=== PATIENT | female | born 1950 | race Caucasian/White ===

== ENCOUNTER 2017-03-04 18:55 | Inpatient (IN) | payer OTHER ==
[~2017-03-04] VITALS: Ht 167.6 cm; Wt 152.2 kg
--- NOTE | ~2017-03-04 | 2DMMODE ---
[facility] [address] [place] [address] 2 D/M-MODE ECHOCARDIOGRAM Name: BEHZAD SPICER Room #: 242-P ADM IN M.R.#: [id number] Admission: 03/04/17 Attend Phys: Adrian Bone Discharge: Date of : 50 Date of Service: 03/05/17 1416 Report #: [id number] THIS REPORT FOR: //name// APPROVED REPORT Study performed: 03/05/2017 12:06:02 EXAM: Comprehensive 2D, Doppler, and color-flow Echocardiogram Patient Location: Bedside Room #: 242 Status: routine BSA: 2.51 HR: 91 bpm BP: 100/62 mmHg Rhythm: Atrial Fibrillation Other Information Study Quality: Adequate/ICU echo patient with trach Technically limited study due to morbid obesity, no mobility. Indications Atrial Fibrillation Hx: CHF, DM 2D Dimensions LVEF(%): 61.75 (>50%) IVSd: 12.07 (7-11mm) LVOT Diam: 22.09 (18-24mm) LVDd: 45.66 mm PWd: 12.53 (7-11mm) LVDs: 30.55 (25-40mm) Aortic Root: 33.54 mm Medina's LVEF: 61.75 % Volumes Left Atrial Volume (Systole) Single Plane 4CH: 65.12 mL Single Plane 2CH: 98.25 mL LA ESV Index: 35.00 mL/m2 Aortic Valve AoV Peak Richard.: 1.54 m/s AO Peak Gr.: 9.53 mmHg LVOT Max P.73 mmHg LVOT Max V: 0.95 m/s CHAY Vmax: 2.37 cm2 [facility] [place] [place] [address] 2 D/M-MODE ECHOCARDIOGRAM Name: BEHZAD SPICER Room #: [facility] ADM IN [facility].#: [id number] Admission: 03/04/17 Attend Phys: Adrian Bone Discharge: Date of : 50 Date of Service: 03/05/17 1416 Report #: [id number] Mitral Valve MV Decel. Time: 210.83 ms MV E Max Richard.: 1.14 m/s Pulmonary Valve PV Peak Richard.: 1.24 m/s PV Peak Gr.: 6.41 mmHg Tricuspid Valve RAP Estimate: 10.00 mmHg Left Ventricle The left ventricle is normal size. There is normal LV segmental wall motion. Mild concentric left ventricular hypertrophy. Left ventricular systolic function is normal. LVEF is 50-55%. This study is not technically sufficient to allow evaluation of the LV diastolic function due to atrial fibrillation. Right Ventricle Right ventricle is not well visualized. Atria Left atrium is dilated. Right atrium is at the upper limits of normal. Aortic Valve Aortic valve is mildly calcified. Trace aortic regurgitation. There is no aortic valvular stenosis. Mitral Valve The mitral valve is normal in structure. Mild mitral annular calcification. Trace mitral regurgitation. Tricuspid Valve Tricuspid valve is not well visualized. Pulmonic Valve Pulmonic valve is not well visualized. Great Vessels The aortic root is normal in size. The ascending aorta is normal in size. IVC is normal in size and collapses <50% with inspiration. Pericardium There is no pericardial effusion. [facility] [place] [address] 2 D/M-MODE ECHOCARDIOGRAM Name: BEHZAD SPICER Room #: 242-P ADM IN M.R.#: [id number] Admission: 03/04/17 Attend Phys: Adrian Bone Discharge: Date of : 50 Date of Service: 03/05/17 141 Report #: [id number] <Conclusion> The left ventricle is normal size. LVEF is 50-55%. Left atrium is dilated. Right atrium is at the upper limits of normal. Aortic valve is mildly calcified. Trace aortic regurgitation. There is no aortic valvular stenosis. The mitral valve is normal in structure. Mild mitral annular calcification. Trace mitral regurgitation. Pulmonic valve is not well visualized. <ELECTRONICALLY SIGNED> By: Freddy Tomlinson MD 03/05/17 1416 141 1416 Freddy Tomlinson MD /MARLIN
--- NOTE | ~2017-03-04 | EEG ---
[facility] [place] [address] [place] [address] ELECTROENCEPHALOGRAM Name: BEHZAD SPICER Room #: 451-P [facility] IN M.R.#: [id number] Admission: 03/04/17 Attend Phys: Will Bhakta MD Discharge: 03/13/17 Date of : 50 Report #: [id number] THIS REPORT FOR: //name// CC: Chidi Bhakta DATE OF SERVICE: 03/08/2017 The patient is being evaluated for seizures. The background activity appeared to be about 9 Hz and 30 microvolt. This is a symmetrical activity. In the left temporoparietal area, there is a constant activity, which correlates with the head tremor, which is also constant. This is pretty unusual. Photic stimulation is unremarkable. IMPRESSION: This patient's EEG demonstrates an abnormality in the left temporoparietal area. That is probably an artifact, but I cannot exclude the possibility of seizures fully in this patient. I will recommend a Neurology consult and considering a prolonged monitoring of this region to evaluate the patient further. <ELECTRONICALLY SIGNED> By: Jamie Perry MD 03/13/17 1941 [id number] 184 Jamie Perry MD /nt
--- NOTE | ~2017-03-04 | HC ---
[facility] [place] [address] [address] CONSULTATION Name: BEHZAD SPICER Room #: 242-P ADM IN M.R.#: [id number] Admission: 03/04/17 Attend Phys: Will Bhakta MD Discharge: Date of : 50 Report #: [id number] THIS REPORT FOR: //name// CC: Chidi Bhakta TYPE OF REPORT: Infectious disease consultation. REASON FOR CONSULTATION: I was asked to evaluate concerning shock. HISTORY OF PRESENT ILLNESS: The patient is a 66-year old with respiratory failure, chronic tracheostomy, who was in [facility]. She was transferred due to acute renal failure. Evaluation during the ER admission noted, blood pressure dropped into the 50s. She received IV fluids and started on vasopressors. She remains on the ventilator and has been essentially unresponsive. I had no significant history other than that going from the emergency room dictation and discussion with the nursing staff. She does have a history of respiratory failure, diabetes, congestive heart failure, aphagia and dysphagia. PAST MEDICAL HISTORY: Otherwise notable for atrial fibrillation. ALLERGIES: She is allergic to METFORMIN, SIMVASTATIN and TOBRAMYCIN. MEDICATIONS: As noted on her SEP, now including vancomycin and Zosyn. She is on Levophed drip. Blood pressure has improved while on this. FAMILY HISTORY: Unavailable. SOCIAL HISTORY: Not available. REVIEW OF SYSTEMS: She has peripheral IVs in place. She has an indwelling Means catheter. No reported decubiti. No diarrhea. No vomiting episodes. She has a PEG tube in place and tracheostomy. PHYSICAL EXAMINATION: VITAL SIGNS: Maximum temperature is 101 degrees; heart rate 130; blood pressure 72/57 with a MAP of 63, on Levaquin fluid drip at 14 mcg and on FiO2 of 45%. She would grimace to pain otherwise nonresponsive. HEENT: Pupils were reactive to light. NECK: Supple. Tracheostomy is unremarkable. She was obese. No rashes or decubiti. LUNGS: Coarse bilaterally. HEART: Regular and tachycardic. ABDOMEN: Soft. She had a mass in the lower abdomen below the umbilicus [facility] [address] [place] [address] CONSULTATION Name: BEHZAD SPICER Room #: 242-P ADM IN .R.#: [id number] Admission: 03/04/17 Attend Phys: Will Bhakta MD Discharge: Date of : 50 Report #: [id number] involving her abdominal pannus. This did not appear significantly tender. No other masses or hepatosplenomegaly identified. Indwelling Means catheter. EXTREMITIES: Unremarkable. LABORATORY STUDIES: Sodium 126, potassium 3.2, bicarbonate of 33 and creatinine is initially 3.1 and now 2.5. Liver function test normal. Albumin of 2 and lactate 2.2, down from 4 on admission. Hemoglobin 10 up from 7.6 on admission; WBC 9.7; platelet count 98,000 and 12% bands. Urinalysis, many wbc's and moderate bacteria. ABG on 45% FiO2 showed a pO2 97, pCO2 of 42 and pH 7.5. Blood and urine cultures are pending. RADIOLOGICAL DATA: Chest x-ray: Cardiomegaly, perihilar infiltrates and basilar infiltrates. IMPRESSION AND PLAN: A 66-year old with chronic respiratory failure, encephalopathy and acute renal failure, now with shock. Source is yet to be determined. She does have pulmonary infiltrates, although her oxygen requirements have not increased. She has an abdominal mass, suspect a hernia, this will need to be further evaluated. We will obtain further records from [facility]. Continue broad antibiotic support pending further studies. <ELECTRONICALLY SIGNED> By: Nakul Foy MD 03/06/17 1257 0814 [id number] Nakul Foy MD /nt
--- NOTE | ~2017-03-04 | HC ---
[facility] [place] [address] [place] [address] CONSULTATION Name: BEHZAD SPICER Room #: 451-P ADM IN M.R.#: [id number] Admission: 03/04/17 Attend Phys: Will Bhakta MD Discharge: Date of : 50 Report #: [id number] THIS REPORT FOR: //name// CC: Chidi Bhakta REFERRAL PHYSICIAN: Will Bhakta MD. REASON FOR REFERRAL: Respiratory failure. HISTORY OF PRESENT ILLNESS: The patient is a 66-year-old white female who is transferred from [facility] for abnormal labs. She has been admitted for possible sepsis. A pulmonary consultation was requested. The patient is not able to provide history. Most of her information is obtained from the records. According to the records, she has been at the [facility] for about 4 months. She is felt to be ventilator dependent, not responsive. She has had history of MRSA sepsis, pneumonia in the past. She was in her usual state of health when laboratory data was obtained. There was felt to have creatinine. For that reason, she was transferred to the ER. Currently, she is only responsive to sternal rub, she does not open her eyes. PAST MEDICAL HISTORY: Notable for chronic respiratory failure, ventilator dependent, status post tracheostomy, PEG tube placement, history of sleep apnea, cor pulmonale, morbid obesity, atrial fibrillation, diabetes mellitus type 2, coronary artery disease with prior stent placement. PAST SURGICAL HISTORY: As mentioned above including hysterectomy, herniorrhaphy. ALLERGIES: METFORMIN, SIMVASTATIN, TOBRAMYCIN, reactions unspecified. MEDICATIONS: Reviewed in the MAR. FAMILY HISTORY: Unobtainable. SOCIAL HISTORY: Unknown. She apparently has a son who has expressed a desire for full code blue. [facility] [address] [place] [address] CONSULTATION Name: BEHZAD SPICER Room #: 451-P [facility] IN ..#: [id number] Admission: 03/04/17 Attend Phys: Will Bhakta MD Discharge: Date of : 50 Report #: [id number] REVIEW OF SYSTEMS: Unable to obtain at this time. PHYSICAL EXAMINATION: GENERAL: She is only responsive to sternal rub. VITAL SIGNS: Temperature is 101 degrees Fahrenheit, pulse is 132, respiratory rate is 20, blood pressure was as low as systolic of 56 mmHg. Currently, is 100/60 mmHg systolic. Saturation 100%. HEENT: Normocephalic, atraumatic. NECK: Status post tracheostomy. CHEST: Fair breath sounds. No obvious rales or wheezes. CARDIOVASCULAR: Heart sounds are distant. No obvious murmurs or gallop. BREASTS: Deferred. ABDOMEN: Soft, mildly obese. No masses felt. GENITOURINARY: Deferred. RECTAL: Deferred. EXTREMITIES: There is trace edema, less than 1+ bilaterally. No cyanosis or clubbing. NEUROLOGIC: She is responsive only to deep sternal rub. Baseline is unclear. LABORATORY DATA: Chest x-ray showed mild left lower lobe infiltrates. Sodium 123, potassium 3.6, chloride of 78, CO2 is 37, BUN is 120, creatinine 3.1, glucose 282. Liver function profile grossly unremarkable. WBC 9500 with 12% bands, platelets 98,000. Albumin 1.9. Arterial blood gas revealed pH 7.53, pCO2 42, pO2 97, FIO2 45%. IMPRESSION: 1. Hypotension in this 66-year-old white female with severe comorbid conditions. Chest x-ray shows mild left-sided infiltrates. She has bandemia. She is febrile. UA shows moderate bacteria. The patient is presumed to have severe sepsis with septic shock, source possibly related to pneumonia, possible urinary tract infection. 2. Acute on chronic respiratory failure. The patient is felt to be ventilator dependent due to multiple comorbid conditions along with encephalopathy. 3. Acute kidney injury/presumed chronic kidney disease, hyponatremia, hypokalemia. 4. Acid base. The patient appears to in alkalosis presumably due to metabolic due to volume contraction. 5. Severe protein calorie malnutrition with an albumin of 1.9. 6. Anemia, chronic, given hypotension, recommend transfusion to keep hemoglobin greater than 7. 7. History of obstructive sleep apnea, cor pulmonale, presumed pulmonary hypertension, morbid obesity. This may have been the result for her chronic respiratory failure. RECOMMENDATION: We will continue mechanical ventilation, her acid base should [address] [address] CONSULTATION Name: BEHZAD SPICER Room #: 451-P [facility] IN M.R.#: [id number] Admission: 03/04/17 Attend Phys: Will Bhakta MD Discharge: Date of : 50 Report #: [id number] stabilize once her fluid status has improved. Wean O2 for saturation 90%. We will defer antibiotics to Infectious Disease. DVT and GI prophylaxis will be addressed. Overall, look appears to be poor. According to records, the son desires a full code blue. Thank you for this consultation. <ELECTRONICALLY SIGNED> By: Michael Hill MD 03/12/17 1706 1258 1347 Michael Hill MD /nt
--- NOTE | ~2017-03-04 | H ---
[facility] [place] [address] [place] [address] HISTORY AND PHYSICAL Name: BEHZAD SPICER Room #: 242-P ADM IN M.R.#: [id number] Admission: 03/04/17 Attend Phys: Will Bhakta MD Discharge: Date of : 50 Report #: [id number] THIS REPORT FOR: //name// CC: Chidi Bhakta DATE OF SERVICE: 03/05/2017 CHIEF COMPLAINT: Abnormal labs. HISTORY OF PRESENT ILLNESS: The patient is a 66-year-old female transferred from [facility] for evaluation of abnormal labs. She is unable to give any history and there is limited data available. I reviewed all electronic records. It appears she had some abnormal labs yesterday with creatinine elevated around 3. This was increased beyond her baseline. There was concern for infection or sepsis, and she was transferred to the hospital and subsequently admitted to ICU. She has been assessed by the renal and ID teams and ongoing treatment for sepsis is continuing. PAST MEDICAL HISTORY: Morbid obesity; respiratory failure, now ventilator dependent with trach and PEG; obesity hypoventilation syndrome, atrial fibrillation, there is a note suggesting chronic kidney disease, diabetes type 2. PAST SURGICAL HISTORY: Unknown. FAMILY HISTORY: Unknown. SOCIAL HISTORY: Unavailable. ALLERGIES: METFORMIN, SIMVASTATIN, AND TOBRAMYCIN. MEDICATIONS: DuoNeb, Eliquis, metoprolol, diltiazem, losartan, Depakote, Xanax, zinc, Lasix, acidophilus, Prilosec, Amaryl, Levoxyl, thiamine. REVIEW OF SYSTEMS: She is unable to give review. PHYSICAL EXAMINATION: VITAL SIGNS: Per nursing notes. GENERAL: She is asleep on the ventilator, looks chronically ill. HEAD AND NECK: She has got a thick obese neck. Tracheostomy tube in place. LUNGS: Clear anteriorly. HEART: Tachycardic, regular. ABDOMEN: Obese, soft, normoactive bowel sounds. PEG tube. [facility] [address] [place] [address] HISTORY AND PHYSICAL Name: BEHZAD SPICER Room #: [facility] IN M.R.#: [id number] Admission: 03/04/17 Attend Phys: Will Bhakta MD Discharge: Date of : 50 Report #: [id number] EXTREMITIES: No cyanosis or clubbing, 1+ edema. NEUROLOGIC: Cannot get her to follow any type of neuro exam. LABORATORY DATA: White count 9, hemoglobin 10, platelets 103. Sodium 126, potassium 3.2, BUN 105, creatinine 2.5, glucose 329, albumin 2. Urinalysis with red cells, white cells, bacteria and glucose, leukocyte esterase. ABG with pH 7.5, pCO2 of 42, PaO2 of 97. Renal ultrasound was fairly unremarkable. They were unable to visualize one of the kidneys due to her obesity. Chest x-ray shows cardiomegaly. ASSESSMENT: 1. Sepsis. 2. Acute renal failure on chronic kidney disease. 3. Chronic hypoxic respiratory failure. 4. Morbid obesity. 5. Obesity hypoventilation syndrome. 6. Diabetes type 2. 7. Anemia of chronic disease. 8. Severe protein-calorie malnutrition. PLAN: As mentioned, she is full sepsis treatment with IV antibiotics. I will ask the pulmonary service to follow her as well. She remains critically ill. Lovenox for DVT prophylaxis. <ELECTRONICALLY SIGNED> By: Eric Rock MD 03/06/17 1238 0949 1012 Eric Rock MD /nt
--- NOTE | ~2017-03-04 | HC ---
[facility] [place] [address] [place] [address] CONSULTATION Name: BEHZAD SPICER Room #: 451-P ADM IN M.R.#: [id number] Admission: 03/04/17 Attend Phys: Will Bhakta MD Discharge: Date of : 50 Report #: [id number] THIS REPORT FOR: //name// CC: Chidi Bhakta DATE OF SERVICE: 03/05/2017. ATTENDING PHYSICIAN: Dr. Bhakta. REASON FOR CONSULTATION: Elevated creatinine. HISTORY OF PRESENT ILLNESS: This is a 66-year-old patient transferred from [facility] care [facility] with hypotension, tachycardia and elevated creatinine. Little history is available. There are some records from long term. She apparently had been there for the last 4 months. She has a chronic ventilator patient with poor responsivity and fed with a PEG tube. Underlying substrate includes obesity, hypoventilation, cor pulmonale, previous methicillin-resistant Staphylococcus aureus sepsis, pneumonia, severe right-sided failure, chronic atrial fibrillation. She also has underlying diabetes. Apparently, she became even less responsive, developed worsening tachycardia and hypotension and a creatinine elevated. She was transferred to [facility] for further care. PAST MEDICAL HISTORY: Again, she has atrial fibrillation, diabetes, morbid obesity, history of sleep apnea, chronic vent now with tracheostomy, chronic PEG tube feeding, history of the right-sided failure with cor pulmonale. She has also had previous hysterectomy, hernia repair, cholecystectomy and possibly coronary artery disease with stenting. FAMILY HISTORY: Unable to be obtain. SOCIAL HISTORY: She is in the alf, has a son who insists on full code. REVIEW OF SYSTEMS: Cannot be taken. MEDICATIONS: As listed from the [facility] care facility included omeprazole 40 mg b.i.d., levothyroxine 75 mcg daily, glimepiride 4 mg daily, losartan 50 mg daily, zinc, vitamin B1, Eliquis 5 mg b.i.d., furosemide 40 mg b.i.d., metoprolol 50 mg b.i.d., diltiazem 90 mg every 6 hours, valproic acid 500 mg every 6 hours, insulin. PHYSICAL EXAMINATION: [facility] [address] [place] [address] CONSULTATION Name: BEHZAD SPICER Room #: 451-P [facility] IN .R.#: [id number] Admission: 03/04/17 Attend Phys: Will Bhakta MD Discharge: Date of : 50 Report #: [id number] GENERAL: This is a morbidly obese woman, unresponsive in the ICU on the ventilator, tracheostomy. SKIN: Cool. SKELETAL: Quite obese, well-developed, well nourished. HEENT: Extraocular movements cannot be tested. Pupils are a bit dilated, but react, extraocular movements. No scleral icterus. Hearing and vision unresponsive. Tracheostomy in place. CHEST: Shows diminished breath sounds with occasional rhonchi. HEART: Irregular and tachycardic. ABDOMEN: Soft, rather obese. EXTREMITIES: Show trace to 1+ generalized edema. NEUROLOGIC: Again, currently unresponsive. LABORATORY DATA: Includes hemoglobin of 7.6, white cell count is 9.5, 12% bands are noted, platelets are 98,000, sodium is 126, potassium 3.2, chloride 81, bicarbonate 33, BUN 105, creatinine 2.5, albumin 2, transaminases are not elevated. Lactic acid was 4 down to 2.2. Arterial blood gas last evening showed pH 7.53, pCO2 42, pO2 97, FiO2 of 45% on the ventilator. Urine sodium was low. Urinalysis indicated proteinuria and also apparent leukocyturia and bacteriuria indicating possible urinary tract infection. ASSESSMENT AND PLAN: 1. Elevated creatinine, creatinine is apparently elevated from baseline, baseline is not currently available, will need to check. She is tachycardic with an irregular heartbeat which I believe chronic and hypotensive. She has received over 3 L of IV fluid, apparently is being treated for apparent sepsis with broad-spectrum antibiotics as this appears to be appropriate, lactic acid was mildly elevated, but is better. Current support appears adequate, urine output is good creatinine is fallen from 3.1-2.5, continue to support with pressors, fluids and antibiotics as appropriate at this point. 2. Probable chronic kidney disease with known proteinuria. 3. Chronic respiratory failure with chronic ventilator and tracheostomy. 4. Chronic debility on tube feedings. 5. History of obesity, hypoventilation with cor pulmonale and right-sided heart failure. 6. History of diabetes mellitus with history of peripheral neuropathy. <ELECTRONICALLY SIGNED> By: Rodriguez Petty MD 03/12/17 1153 0731 0815 Rodriguez Petty MD /nt
[2017-03-04 18:55] VITALS: BP 91/46
[2017-03-04 20:23] LABS: HEMATOCRIT 21.7 % (37.0-47.0); HEMOGLOBIN 7.6 gm/dL (12.0-15.0); MCH 34.1 pg (26.0-34.0); MCHC 34.9 g/dL (28.0-37.0); MCV 97.9 fL (80.0-100.0); PLATELET COUNT 98 thou/uL (150-400); RBC 2.22 mil/uL (4.20-5.00); RDW 15.1 % (10.5-14.5); WBC 9.5 thou/uL (4.0-11.0)
[2017-03-04 20:27] LABS: MANUAL DIFF YES
[2017-03-04 20:29] LABS: CALCIUM 9.2 mg/dL (8.5-10.1); CREATININE 3.1 mg/dL (0.6-1.0); POTASSIUM 3.6 mmol/L (3.5-5.1)
[2017-03-04 20:36] LABS: ALBUMIN 1.9 g/dL (3.4-5.0); TOTAL BILIRUBIN 0.4 mg/dL (<0.1-1.0); TOTAL PROTEIN 7.2 g/dL (6.4-8.2)
[2017-03-04 20:45] LABS: ABG SAMPLE TYPE ARTERIAL; BE(vivo) 11.1 mmol/L (-2 to +3); HCO3 34.8 mmol/L (22.0-26.0); O2Hb 97.1 % (92.0-98.0); PCO2 42.4 mmHg (35.0-45.0); PO2 97.1 mmHg (80.0-100.0); pH 7.532 (7.360-7.450); tCO2 36.1 mmol/L (24.0-30.0)
[2017-03-04 20:46] LABS: ABG COMMENT A/C MODE; LACTATE 4.96 mmol/L (0.5-2.0); STICK SITE L.RADIAL; TIDAL VOLUME 500 ml
[2017-03-04 20:50] LABS: INR 1.1; PROTIME 11.3 Seconds (9.3-11.4)
[2017-03-04 20:56] LABS: ABSOLUTE NEUTROPHILS 8.6 thou/uL (1.4-8.2); ANISOCYTOSIS SLIGHT; MACROCYTES SLIGHT; METAMYELOCYTES 1 %; TOTAL CELL COUNT 100
[2017-03-04 22:05] LABS: URINE BILIRUBIN NEGATIVE (Negative); URINE BLOOD 3+ (Negative); URINE GLUCOSE-RANDOM* 1+ (Negative); URINE KETONES NEGATIVE (Negative); URINE LEUKOCYTES-REFLEX 3+ (Negative); URINE PROTEIN (DIPSTICK) 3+ (Negative); URINE UROBILINOGEN 0.2 E.U./dl (0.2-1.0)
[2017-03-04 22:06] LABS: URINE COLOR RED
[2017-03-04 22:07] LABS: SQUAMOUS 0-3 Few /LPF (0-3); URINE RBC >20 Many /HPF (0-2); URINE WBC-REFLEX >25 Many /HPF (0-5)
[2017-03-04 22:08] LABS: CASTS None Seen /LPF (None Seen); CRYSTALS None Seen /LPF (None Seen)
[2017-03-04 22:45] VITALS: BP 116/61
[2017-03-04 23:00] VITALS: BP 99/76
[2017-03-04 23:15] VITALS: BP 81/27
[2017-03-04 23:24] VITALS: BP 100/60
[2017-03-04 23:45] VITALS: BP 97/58
[2017-03-05] VITALS (97 sets, daily range): BP systolic 51–119; BP diastolic 15–78
[2017-03-05 04:50] LABS: URINE CREATININE-RANDOM* < 13.0 mg/dL
[2017-03-05] MEDS ORDERED: OMEPRAZOLE40 MG PER TUBE (05:31)
[2017-03-05] MEDS ORDERED: GLIMEPIRIDE4 MG PER TUBE (05:32)
[2017-03-05] MEDS ORDERED: LEVOTHYROXIN0.075 MG PER TUBE (05:32)
[2017-03-05] MEDS ORDERED: COZAAR 50 MG TA50 M2 PER TUBE (05:33)
[2017-03-05] MEDS ORDERED: ORAZINC220 MG PER TUBE (05:34)
[2017-03-05] MEDS ORDERED: VITAMIN B-1100 MG PER TUBE (05:34)
[2017-03-05] MEDS ORDERED: PROBIOTIC1 EAC1 PER TUBE (05:35)
[2017-03-05] MEDS ORDERED: ELIQUIS5 MG PER TUBE (05:35)
[2017-03-05] MEDS ORDERED: LOPRESSOR50 PER TUBE (05:36)
[2017-03-05] MEDS ORDERED: XANAX 0.5 MG0.5 MG PER TUBE (05:36)
[2017-03-05] MEDS ORDERED: LASIX 40 MG TAB40 M2 PER TUBE (05:36)
[2017-03-05] MEDS ORDERED: DILTIAZEM HCL90 MG PER TUBE (05:37)
[2017-03-05] MEDS ORDERED: VALPROIC A500 MG/10 PER TUBE (05:38)
[2017-03-05] MEDS ORDERED: CALMOSEPTINE O3.5 GM TP (05:38)
[2017-03-05] MEDS ORDERED: DUONEB 2.5-0.5 M3 ML INH (05:39)
[2017-03-05 06:19] LABS: CALCIUM 9.2 mg/dL (8.5-10.1); CREATININE 2.5 mg/dL (0.6-1.0); PHOSPHORUS 4.4 mg/dL (2.5-4.9); POTASSIUM 3.2 mmol/L (3.5-5.1)
[2017-03-05 07:30] LABS: HEMATOCRIT 30.3 % (37.0-47.0); MCH 33.2 pg (26.0-34.0); MCHC 33.9 g/dL (28.0-37.0); MCV 97.9 fL (80.0-100.0); RBC 3.09 mil/uL (4.20-5.00); RDW 15.7 % (10.5-14.5); WBC 9.7 thou/uL (4.0-11.0)
[2017-03-05 07:32] LABS: HEMOGLOBIN 10.3 gm/dL (12.0-15.0); MANUAL DIFF YES
[2017-03-05 08:25] LABS: ABSOLUTE NEUTROPHILS 8.3 thou/uL (1.4-8.2); ANISOCYTOSIS 1+; POLYCHROMASIA OCCASIONAL; TOTAL CELL COUNT 100
[2017-03-05 08:44] LABS: PLATELET COUNT 103 thou/uL (150-400); PLATELET ESTIMATE NORMAL
[2017-03-05 18:22] LABS: ALBUMIN 1.7 g/dL (3.4-5.0); CREATININE 2.5 mg/dL (0.6-1.0); PHOSPHORUS 3.3 mg/dL (2.5-4.9); POTASSIUM 3.2 mmol/L (3.5-5.1)
[2017-03-06] VITALS (88 sets, daily range): BP systolic 63–112; BP diastolic 44–76
[2017-03-06 05:15] LABS: HEMATOCRIT 25.3 % (37.0-47.0); HEMOGLOBIN 8.6 gm/dL (12.0-15.0); MCH 33.3 pg (26.0-34.0); MCHC 34.1 g/dL (28.0-37.0); MCV 97.6 fL (80.0-100.0); PLATELET COUNT 85 thou/uL (150-400); RBC 2.59 mil/uL (4.20-5.00); RDW 15.5 % (10.5-14.5); WBC 7.9 thou/uL (4.0-11.0)
[2017-03-06 05:17] LABS: MANUAL DIFF YES
[2017-03-06 05:23] LABS: ALBUMIN 1.5 g/dL (3.4-5.0); CALCIUM 8.9 mg/dL (8.5-10.1); PHOSPHORUS 2.6 mg/dL (2.5-4.9)
[2017-03-06 05:32] LABS: POTASSIUM 2.5 mmol/L (3.5-5.1)
[2017-03-06 05:44] LABS: ABG SAMPLE TYPE ARTERIAL; BE(vivo) 3.8 mmol/L (-2 to +3); LACTATE 1.57 mmol/L (0.5-2.0); O2(CT) 16.7 mL/dL (15.0-23.0); O2Hb 98.6 % (92.0-98.0); PCO2 35.9 mmHg (35.0-45.0); PO2 155.8 mmHg (80.0-100.0); pH 7.494 (7.360-7.450); sO2 99.2 % (92.0-98.0); tCO2 28.1 mmol/L (24.0-30.0)
[2017-03-06 05:45] LABS: STICK SITE L.RADIAL; TIDAL VOLUME 500 ml
[2017-03-06 08:23] LABS: ABSOLUTE NEUTROPHILS 6.7 thou/uL (1.4-8.2); TOTAL CELL COUNT 100
[2017-03-06 08:24] LABS: ANISOCYTOSIS 1+
[2017-03-06 18:09] LABS: ALBUMIN 1.6 g/dL (3.4-5.0); CALCIUM 9.3 mg/dL (8.5-10.1); CREATININE 1.7 mg/dL (0.6-1.0); PHOSPHORUS 2.2 mg/dL (2.5-4.9)
[2017-03-06 18:11] LABS: POTASSIUM 2.8 mmol/L (3.5-5.1)
[2017-03-07] VITALS (91 sets, daily range): BP systolic 67–121; BP diastolic 37–84
[2017-03-07 05:18] LABS: HEMOGLOBIN 8.8 gm/dL (12.0-15.0); MCH 33.2 pg (26.0-34.0); MCHC 33.9 g/dL (28.0-37.0); MCV 98.2 fL (80.0-100.0); PLATELET COUNT 92 thou/uL (150-400); RBC 2.65 mil/uL (4.20-5.00); RDW 15.6 % (10.5-14.5); WBC 6.7 thou/uL (4.0-11.0)
[2017-03-07 05:27] LABS: ALBUMIN 1.6 g/dL (3.4-5.0); CALCIUM 9.3 mg/dL (8.5-10.1); CREATININE 1.5 mg/dL (0.6-1.0); PHOSPHORUS 2.1 mg/dL (2.5-4.9); POTASSIUM 3.3 mmol/L (3.5-5.1)
[2017-03-07 05:28] LABS: MANUAL DIFF YES
[2017-03-07 07:56] LABS: ABSOLUTE NEUTROPHILS 5.2 thou/uL (1.4-8.2); TOTAL CELL COUNT 100
[2017-03-07 07:58] LABS: ANISOCYTOSIS 1+
[2017-03-07 13:37] LABS: MAGNESIUM 1.8 mg/dL (1.8-2.4); POTASSIUM 3.7 mmol/L (3.5-5.1)
[2017-03-08] VITALS (24 sets, daily range): BP systolic 83–119; BP diastolic 29–75
[2017-03-08 05:23] LABS: HEMATOCRIT 23.8 % (37.0-47.0); MCH 33.4 pg (26.0-34.0); MCHC 33.9 g/dL (28.0-37.0); MCV 98.5 fL (80.0-100.0); PLATELET COUNT 103 thou/uL (150-400); RBC 2.41 mil/uL (4.20-5.00); RDW 15.6 % (10.5-14.5)
[2017-03-08 05:24] LABS: MANUAL DIFF YES
[2017-03-08 05:31] LABS: ABG SAMPLE TYPE ARTERIAL; BE(vivo) 5.1 mmol/L (-2 to +3); HCO3 29.2 mmol/L (22.0-26.0); LACTATE 1.37 mmol/L (0.5-2.0); O2(CT) 15.5 mL/dL (15.0-23.0); O2Hb 98.4 % (92.0-98.0); PO2 174.6 mmHg (80.0-100.0); STICK SITE LRA; TIDAL VOLUME 500 ml; sO2 99.3 % (92.0-98.0); tCO2 30.4 mmol/L (24.0-30.0)
[2017-03-08 05:32] LABS: ALBUMIN 1.7 g/dL (3.4-5.0); CALCIUM 9.5 mg/dL (8.5-10.1); CREATININE 1.3 mg/dL (0.6-1.0); MAGNESIUM 1.8 mg/dL (1.8-2.4); PHOSPHORUS 2.1 mg/dL (2.5-4.9); POTASSIUM 3.4 mmol/L (3.5-5.1); TOTAL BILIRUBIN 0.4 mg/dL (<0.1-1.0)
[2017-03-08 05:32] LABS: ABG COMMENT AC20 500 +8 40%
[2017-03-08 07:13] LABS: ABSOLUTE NEUTROPHILS 4.3 thou/uL (1.4-8.2); METAMYELOCYTES 1 %; TOTAL CELL COUNT 100
[2017-03-08 07:20] LABS: ANISOCYTOSIS 1+
[2017-03-09] VITALS (17 sets, daily range): BP systolic 76–132; BP diastolic 37–83
[2017-03-09 06:16] LABS: ALBUMIN 1.8 g/dL (3.4-5.0); CALCIUM 9.9 mg/dL (8.5-10.1); CREATININE 1.1 mg/dL (0.6-1.0); PHOSPHORUS 1.9 mg/dL (2.5-4.9); POTASSIUM 3.7 mmol/L (3.5-5.1)
[2017-03-10 03:29] VITALS: BP 101/58
[2017-03-10 05:10] LABS: CALCIUM 9.5 mg/dL (8.5-10.1); CREATININE 1.3 mg/dL (0.6-1.0); MAGNESIUM 1.7 mg/dL (1.8-2.4); PHOSPHORUS 3.1 mg/dL (2.5-4.9)
[2017-03-10 05:45] LABS: ABG SAMPLE TYPE ARTERIAL; BE(vivo) 7.9 mmol/L (-2 to +3); HCO3 32.7 mmol/L (22.0-26.0); LACTATE 2.37 mmol/L (0.5-2.0); O2(CT) 13.8 mL/dL (15.0-23.0); O2Hb 97.2 % (92.0-98.0); PCO2 47.2 mmHg (35.0-45.0); PO2 107.3 mmHg (80.0-100.0); STICK SITE L.RADIAL; pH 7.458 (7.360-7.450); sO2 98.1 % (92.0-98.0); tCO2 34.1 mmol/L (24.0-30.0)
[2017-03-10 05:46] LABS: O2(CAP) 30 mL/dL; TIDAL VOLUME 0.501 ml
[2017-03-10 08:08] VITALS: BP 114/40
[2017-03-10 11:34] VITALS: BP 119/51
[2017-03-10 15:42] VITALS: BP 120/44
[2017-03-10 19:48] VITALS: BP 97/47
[2017-03-10 23:51] VITALS: BP 97/48
[2017-03-11 05:40] LABS: CALCIUM 9.3 mg/dL (8.5-10.1); CREATININE 1.2 mg/dL (0.6-1.0); PHOSPHORUS 2.9 mg/dL (2.5-4.9)
[2017-03-11 07:35] LABS: ABG SAMPLE TYPE ARTERIAL; BE(vivo) 11.6 mmol/L (-2 to +3); HCO3 36.3 mmol/L (22.0-26.0); LACTATE 1.72 mmol/L (0.5-2.0); O2(CT) 11.6 mL/dL (15.0-23.0); O2Hb 96.4 % (92.0-98.0); PCO2 49.3 mmHg (35.0-45.0); PO2 97.4 mmHg (80.0-100.0); pH 7.485 (7.360-7.450); sO2 97.7 % (92.0-98.0); tCO2 37.8 mmol/L (24.0-30.0)
[2017-03-11 07:36] LABS: STICK SITE L.RADIAL
[2017-03-11 07:37] VITALS: BP 121/51
[2017-03-11 07:37] LABS: TIDAL VOLUME 500 ml
[2017-03-11 11:36] VITALS: BP 97/58
[2017-03-11 16:30] VITALS: BP 107/41
[2017-03-11 19:00] VITALS: BP 102/43
[2017-03-12 04:51] LABS: ALBUMIN 1.9 g/dL (3.4-5.0); CALCIUM 8.9 mg/dL (8.5-10.1); PHOSPHORUS 3.1 mg/dL (2.5-4.9); POTASSIUM 3.6 mmol/L (3.5-5.1)
[2017-03-12 04:58] VITALS: BP 110/59
[2017-03-12 07:49] VITALS: BP 102/42
[2017-03-12 11:34] VITALS: BP 110/54
[2017-03-12 15:53] VITALS: BP 138/54
[2017-03-12 19:01] VITALS: BP 95/54
[2017-03-13 07:27] VITALS: BP 123/67
[2017-03-13 11:55] VITALS: BP 104/59
[2017-03-13] MEDS ORDERED: LOPRESSOR25 PER TUBE (12:15)
[2017-03-13] MEDS ORDERED: HUMALOG100 UNIT/1 SUBQ (12:16)
[2017-03-13] MEDS ORDERED: LANTUS100 UNIT/M SUBQ (12:16)
[2017-03-13] MEDS ORDERED: ZOSYN 3.3753.375 GM IV (12:17)
== END 2017-03-13 15:41 | DRG 870 ==
LOC: ER 18:55 → ICU 21:37 → EROBS 21:37 → ICU 23:18 → 4W 03-09 15:23
PROVIDERS: Emergency Medicine; Hospitalist; Internal Medicine Nephrology; Internal Medicine Pulmonary Disease; Specialist
PROC: 0BH17EZ Insertion of Endotracheal Airway into Trachea, Via Natural or Artificial Opening (ICD-10-PCS; principal; 2017-03-05)
PROC: 5A1955Z Respiratory Ventilation, Greater than 96 Consecutive Hours (ICD-10-PCS; principal; 2017-03-05)
PROC: 02HV33Z Insertion of Infusion Device into Superior Vena Cava, Percutaneous Approach (ICD-10-PCS; 2017-03-05)
PROC: 30233N1 Transfusion of Nonautologous Red Blood Cells into Peripheral Vein, Percutaneous Approach (ICD-10-PCS; 2017-03-05)
DX: A41.51 Sepsis due to Escherichia coli [E. coli] (principal); J96.20 Acute and chronic respiratory failure, unspecified whether with hypoxia or hypercapnia; E43 Unspecified severe protein-calorie malnutrition; R65.21 Severe sepsis with septic shock; G92 Toxic encephalopathy; N17.9 Acute kidney failure, unspecified; E87.1 Hypo-osmolality and hyponatremia; E66.2 Morbid (severe) obesity with alveolar hypoventilation; E87.3 Alkalosis; D68.59 Other primary thrombophilia; E87.0 Hyperosmolality and hypernatremia; Z68.43 Body mass index [BMI] 50.0-59.9, adult; I48.2 Chronic atrial fibrillation; I50.9 Heart failure, unspecified; E11.42 Type 2 diabetes mellitus with diabetic polyneuropathy; E87.6 Hypokalemia; E11.22 Type 2 diabetes mellitus with diabetic chronic kidney disease; N18.9 Chronic kidney disease, unspecified; D63.8 Anemia in other chronic diseases classified elsewhere; E87.8 Other disorders of electrolyte and fluid balance, not elsewhere classified; E83.39 Other disorders of phosphorus metabolism; Z79.899 Other long term (current) drug therapy; Z88.1 Allergy status to other antibiotic agents; Z88.8 Allergy status to other drugs, medicaments and biological substances; Z90.710 Acquired absence of both cervix and uterus; Z93.1 Gastrostomy status; Z90.49 Acquired absence of other specified parts of digestive tract
CPT/HCPCS: 10045; 10078; 27000

== ENCOUNTER 2017-04-02 09:47 | Inpatient (IN) | payer OTHER ==
[2017-04-02] VITALS (22 sets, daily range): BP systolic 87–121; BP diastolic 36–82
[~2017-04-02] VITALS: Ht 162.6 cm; Wt 170.3 kg
--- NOTE | ~2017-04-02 | D ---
[facility] [place] [address] [place] [address] DISCHARGE SUMMARY Name: BEHZAD SPICER Room #: 237-P [facility] IN M.R.#: [id number] Admission: 04/02/17 Attend Phys: Eric Rock MD Discharge: 04/10/17 Date of : 50 Report #: [id number] THIS REPORT FOR: //name// CC: Dave Rock DATE OF SERVICE: 04/10/2017 FINAL DIAGNOSES: 1. Sepsis. 2. Gastrointestinal bleed. 3. Atrial fibrillation. 4. Chronic ventilator dependence. 5. Chronic hypoxic hypercapnic respiratory failure. 6. Morbid obesity. 7. Anasarca. 8. Acute kidney injury on chronic kidney disease. 9. Anemia of chronic disease. 10. Tremor. 11. Cerebrovascular disease. 12. Metabolic encephalopathy. HOSPITAL COURSE: The patient was admitted from her care facility with tachycardia and hypotension. She was treated for sepsis and other complications. Multiple consultants followed her stay. Ultimately, she had major issues including sepsis related to Gram-negative bacteremia. ID service followed her. Unfortunately because of her morbid obesity and edema, she was too big for a CT scan or so. We had limited study capability of her chest and abdomen. The pulmonary service followed her, but there were no plans for weaning. Cardiology managed the AFib. GI saw her, but felt she was too unstable to scope and therefore, anticoagulation was discontinued. Tremor of her head was noted and reviewing records, this seems to date back at least September of this year, if not longer. There is no definitive diagnosis. Neurology saw her with another EEG, which was equivocal but consideration of tremor. She was sedated and this quieted the tremor, but Depakote was decided upon. She had some kidney injury as well and renal service followed her. Ultimately, the decision of the care team was that this was a chronic state with no hope of recovery. There were no plans for ventilator weaning and she showed no signs neurologically of improvement or rehabilitation capability. At this point, the plan will be to finish her medical care of antibiotics and diuretics. PHYSICAL EXAMINATION: GENERAL: On the day of discharge, she was not alert. VITAL SIGNS: Stable. She was off pressors. LUNGS: Clear. HEART: Regular. [facility] [address] [place] [address] DISCHARGE SUMMARY Name: BEHZAD SPICER Room #: 237-P [facility] IN M.R.#: [id number] Admission: 04/02/17 Attend Phys: Eric Rock MD Discharge: 04/10/17 Date of : 50 Report #: [id number] ABDOMEN: Soft, normoactive bowel sounds. EXTREMITIES: 3+ edema. DISPOSITION: To be transferred to [facility] facility. I signed and coordinated all her transfer orders and with transfer staff. She has a very poor prognosis with high risk of cardiopulmonary collapse or multiorgan failure collapse. Ultimately, this appears to be a terminal situation but at this time, we will try to stabilize and return her to the long-term care ventilator unit. She will be followed by Dr. Foy and multiple consultants. <ELECTRONICALLY SIGNED> By: Eric Rock MD 04/12/17 1018 1301 1452 Eric Rock MD /nt
--- NOTE | ~2017-04-02 | EKG ---
[address] [place] [address] ELECTROCARDIOGRAM REPORT Name: BEHZAD SPICER Room #: 237- ADM IN M.R.#: [id number] Admission: 04/02/17 Attend Phys: Eric Rock MD Discharge: Date of : 50 Report #: [id number] THIS REPORT FOR: //name// [facility] Test Date: 2017-04-05 Test Time: 09:42:11 Pat Name: BEHZAD SPICER Department: Room: 237 Gender: F [employer]p [employer]: Coby : 1950 Requested By: Jae Wolf Order Number: [id number] MD: Cody Goldberg Measurements Intervals [place] Rate: 78 P: AL: QRS: 1 QRSD: 96 T: 203 QT: 481 QTc: 549 Interpretive Statements Atrial fibrillation Anterior infarct, old Borderline repolarization abnormality Prolonged QT interval Compared to ECG 04/02/2017 10:00:18 Ventricular response has slowed Electronically Signed On 04-07-2017 13:27:38 CDT by Cody Goldberg [email or web address] <ELECTRONICALLY SIGNED> By: Cody Goldberg MD, [facility] 04/07/17 1327 1 Cody Goldberg MD, [facility] /EPI
--- NOTE | ~2017-04-02 | EEG ---
[facility] [place] [address] ELECTROENCEPHALOGRAM Name: BEHZAD SPICER Room #: 237-P [facility] IN M.R.#: [id number] Admission: 04/02/17 Attend Phys: Eric Rock MD Discharge: 04/10/17 Date of : 50 Report #: [id number] THIS REPORT FOR: //name// CC: Dave Rock DATE OF SERVICE: 04/05/2017 FINDINGS: This patient's EEG was done by placing the electrodes by standard 10-20 system of electrode placement. Both referential and sequential montages were used for recording. Background activity in this patient's EEG is about 7-8 Hz and 30 microvolts. There is a poorly formed background activity. The patient continued to demonstrate what appeared to be epileptiform activity arising from the left cerebral hemisphere. Consideration was given that it may be artifact, but this one looks like a real finding. IMPRESSION: This is an abnormal EEG, which demonstrate pretty persistent epileptiform activity arising from the left cerebral hemisphere. Clinical correlation is recommended for this finding to be significant and further workup to determine any etiology for this epileptiform activity is recommended. Thank you very much for this referral. <ELECTRONICALLY SIGNED> By: Jamie Perry MD 04/15/17 0624 181 Jamie Perry MD /nt
--- NOTE | ~2017-04-02 | HC ---
[facility] [place] [address] CONSULTATION Name: BEHZAD SPICER Room #: 237-P [facility] IN M.R.#: [id number] Admission: 04/02/17 Attend Phys: Eric Rock MD Discharge: Date of : 50 Report #: [id number] THIS REPORT FOR: //name// CC: Dave Rock DATE OF SERVICE: 04/02/2017 REFERRAL PHYSICIAN: Eric Rock MD REASON FOR CONSULTATION: Septic shock. HISTORY OF PRESENT ILLNESS: The patient is a 66-year-old white female well known to this physician, brought to the emergency room with rectal bleeding. In the process of being evaluated, the patient was found to be hypotensive. A UA was positive for bacteriuria. The patient was felt to be septic. She was admitted. The patient was just admitted this February 2017, with abnormal laboratory data. She was found to be hypotensive, volume depleted along with acute kidney injury. She is on chronic mechanical ventilation due to multiple medical problems. These include COPD, sleep apnea along with morbid obesity, cor pulmonale along with encephalopathy. The patient is not able to provide much history. PAST MEDICAL HISTORY: As mentioned above. That also includes status post tracheostomy and PEG tube placement, history of diabetes mellitus type 2, chronic atrial fibrillation, and coronary artery disease with prior stent placement. PAST SURGICAL HISTORY: As mentioned above including hysterectomy. ALLERGIES: METFORMIN, SIMVASTATIN, and TOBRAMYCIN, reactions unspecified. CURRENT MEDICATIONS: List reviewed in SEP. FAMILY HISTORY: Unknown. SOCIAL HISTORY: Unknown. [facility] is from [facility]. She has a son who lives about 200 miles away and has expressed in the past for the patient to be full code blue. REVIEW OF SYSTEMS: Unobtainable at this time. [facility] [address] [place] [address] CONSULTATION Name: BEHZAD SPICER Room #: [facility] IN M.R.#: [id number] Admission: 04/02/17 Attend Phys: Eric Rock MD Discharge: Date of : 50 Report #: [id number] PHYSICAL EXAMINATION: GENERAL: She does not respond. She has previously noted twitches involving her neck. She would move neck side to side. HEENT: Otherwise, normocephalic, atraumatic. NECK: Status post tracheostomy. CHEST: Breath sounds are distant, fair breath sounds with few crackles in the bases. No wheezes. CARDIOVASCULAR: Normal S1, S2. There are no murmurs or gallops. Pulses are 1+/4+ bilaterally. BREASTS: Deferred. ABDOMEN: Obese, soft, nontender, no organomegaly or masses felt. Positive for PEG tube placement in the upper quadrant. GENITOURINARY: Deferred. RECTAL: Deferred. EXTREMITIES: No cyanosis or clubbing, but remarkable for 3+ bilateral pretibial edema. LABORATORY DATA: Portable chest x-ray shows increased vascular markings, tracheostomy in the appropriate position. Mediastinum is prominent. No pleural effusion seen. UA revealed many bacteria. BNP was 8500. Procalcitonin level was 17.8. Lactic acid is 1.8. Sodium 122, potassium 4.4, chloride 86, CO2 is 31, BUN is 51, creatinine is 2.0. Liver function profile is grossly unremarkable. Hemoglobin 7.1, WBC 16,500 with bandemia. Albumin 1.2. Platelets are reduced at 96,000. Troponin is normal. Arterial blood gas revealed pH 7.54, pCO2 of 36, pO2 of 116 on FIO2 45%. IMPRESSION: 1. Severe sepsis with shock, due to urinary tract infection. 2. Acute kidney injury/chronic kidney disease. 3. Acute on chronic hypoxic respiratory failure, ventilator dependent. 4. Chronic atrial fibrillation with rapid ventricular response. 5. Anemia, possible gastrointestinal bleed. 6. Chronic anticoagulation for her atrial fibrillation. 7. Obstructive sleep apnea, probable obesity hypoventilation syndrome. 8. Morbid obesity. 9. Diabetes mellitus type 2. RECOMMENDATIONS: Agree with sepsis protocol, broad spectrum antibiotics per infectious disease. We will continue mechanical ventilation. We will try to monitor urine output closely as she was oliguric on presentation. Given severe comorbid condition along with chronic ventilator dependent, overall prognosis felt to be very poor. [address] [address] CONSULTATION Name: BEHZAD SPICER Room #: 237-P ADM IN M.R.#: [id number] Admission: 04/02/17 Attend Phys: Eric Rock MD Discharge: Date of : 50 Report #: [id number] Thank you for this consultation. <ELECTRONICALLY SIGNED> By: Michael Hill MD 04/04/17 1233 1307 1514 Michael Hill MD /nt
--- NOTE | ~2017-04-02 | HC ---
[facility] [place] [address] CONSULTATION Name: BEHZAD SPICER Room #: 237-P ADM IN M.R.#: [id number] Admission: 04/02/17 Attend Phys: Eric Rock MD Discharge: Date of : 50 Report #: [id number] THIS REPORT FOR: //name// CC: Dave Rock REASON FOR CONSULTATION: I was asked to evaluate concerning septic shock. HISTORY OF PRESENT ILLNESS: The patient is a 66-year-old with chronic respiratory failure with tracheostomy, has been at [facility]. Presents now with rectal bleeding and hypotension. ER team called noting that she was having some purulent drainage around her Means catheter. This catheter was exchanged. Blood pressure has been in the low 90s. She has received IV fluid resuscitation along with vasopressors. Her initial hemoglobin was 7.1. Lactate was elevated as was her BNP. She is on Eliquis for atrial fibrillation. The patient was unable to give any details. She is encephalopathic. A right upper extremity PICC was placed. She has ongoing tracheostomy and a PEG tube. Indwelling Means catheter with small volume urine output. She was recently hospitalized 1 month ago where she was diagnosed with E. coli septic shock, felt to be urinary tract source. She had ongoing encephalopathy and tremor. EEG was suggestive of seizure disorder, but not definitive. She also has MDRO pseudomonas colonization of her respiratory tract. ALLERGIES: METFORMIN, SIMVASTATIN, TOBRAMYCIN. MEDICATIONS: As noted on her SEP, now on vancomycin, Zosyn and fluconazole. Other medications as noted on her SEP. PAST MEDICAL HISTORY: Congestive heart failure, atrial fibrillation, respiratory failure, diabetes, chronic kidney disease, hysterectomy. The patient has been institutionalized for an extended period of time. SOCIAL HISTORY: Nonsmoker, no significant alcohol intake. REVIEW OF SYSTEMS: As noted above. PHYSICAL EXAMINATION: VITAL SIGNS: She is afebrile, heart rate 100, blood pressure 94/65 with a MAP of 74. She is on 45% FiO2. GENERAL: She is morbidly obese. She would arouse to painful stimulus. Would shake her head, but not respond any meaningful way. Right upper extremity PICC site unremarkable. Tracheostomy is unremarkable. PEG tube unremarkable. Indwelling Means catheter in place. LUNGS: Coarse bilaterally. HEART: Regular and tachycardic. ABDOMEN: Obese, soft, nontender, no appreciable masses. PEG site unremarkable. [address] [address] CONSULTATION Name: BEHZAD SPICER Room #: 237-P [facility] IN M.R.#: [id number] Admission: 04/02/17 Attend Phys: Eric Rock MD Discharge: Date of : 50 Report #: [id number] EXTREMITIES: Unremarkable. LABORATORY STUDIES: Sodium 122, potassium 3.9, bicarbonate of 28, BUN 46, creatinine 1.8, calcium 7.8. Hemoglobin 5.6, WBC 16.9, platelet count 77,000. Lactate 1.8. INR 1.2, fibrinogen 641. Procalcitonin 17.8, BNP 8500. Urinalysis; moderate wbc's, moderate bacteria, many rbc's. No further rectal bleeding noted thus far. IMPRESSION: A 66-year-old with respiratory failure, chronic encephalopathy, possible seizure disorder presents now with septic and hypovolemic shock with profound anemia down to a hemoglobin of 5.6. Also, suspicious for urinary tract infection. She had a recent Escherichia coli sepsis. Her chest x-ray shows vascular congestion with basilar atelectasis on the left. No definite consolidation concerning for pneumonia. Other consideration would be diverticulitis or colitis that could present in this fashion. The patient is extremity compromised due to her other comorbidities and encephalopathy along with respiratory failure and morbid obesity. She has acute renal failure. PLAN: Recommend further imaging like CT scan of the abdomen and pelvis. Obtain cultures of blood, urine and sputum. Will need broad antibiotic coverage for nosocomial pathogens. Blood transfusion and monitoring her hemoglobin with serial testing. Have gastroenterology evaluate for endoscopy if necessary. <ELECTRONICALLY SIGNED> By: Nakul Foy MD 04/05/17 0945 1631 2311 Nakul Foy MD /nt
--- NOTE | ~2017-04-02 | H ---
[facility] [place] [address] HISTORY AND PHYSICAL Name: BEHZAD SPICER Room #: 237-P ADM IN M.R.#: [id number] Admission: 04/02/17 Attend Phys: Eric Rock MD Discharge: Date of : 50 Report #: [id number] THIS REPORT FOR: //name// CC: Dave Rock DATE OF SERVICE: 04/02/2017 CHIEF COMPLAINT: Bleeding. HISTORY OF PRESENT ILLNESS: The patient is a 66-year-old female from [facility] ventilator unit who was transferred to the ER with reports of rectal bleeding. She has had a previous serious medical illness and is essentially nonresponsive with a tracheostomy tube, chronic ventilator dependence and PEG tube. She was hospitalized here in mid February with sepsis and diagnosed with E. coli bacteremia and multidrug resistant pseudomonas in the sputum. She was medically stabilized at that time, had issues with atrial fibrillation, continued antibiotics and transferred back to her facility. However, the staff noted some bleeding and they were concerned with GI blood loss, but appears that she has some very excoriated areas in the perineal area that seemed to be oozing. A Means catheter was changed in ER according to their reports and they noted puss type urinary drainage. She has been admitted to ICU in full sepsis. PAST MEDICAL HISTORY: Chronic atrial fibrillation, chronic hypoxic respiratory failure, chronic ventilator dependence, anemia of chronic disease, oropharyngeal dysphagia with PEG tube, chronic Means, diastolic congestive heart failure, morbid obesity, obesity hypoventilation syndrome, chronic kidney disease with creatinine around 2, diabetes type 2. PAST SURGICAL HISTORY: Trach and PEG. FAMILY HISTORY: Unknown. SOCIAL HISTORY: Unavailable. ALLERGIES: Metformin, simvastatin, tobramycin. MEDICATIONS: She had finished a course of Zosyn at the facility, DuoNeb, Eliquis, losartan, Tylenol, Depakote, Zinc, Lasix, metolazone, acidophilus, Prilosec, Lantus, Humalog, Amaryl, Levoxyl. REVIEW OF SYSTEMS: She is unable to give review. PHYSICAL EXAMINATION: VITAL SIGNS: Pulse 89, blood pressure 101/50, O2 sat 97% on the ventilator, 45% [facility] [address] [place] [address] HISTORY AND PHYSICAL Name: BEHZAD SPICER Room #: 237-P [facility] IN .R.#: [id number] Admission: 04/02/17 Attend Phys: Eric Rock MD Discharge: Date of : 50 Report #: [id number] FiO2. GENERAL: She looks chronically ill. She does not open her eyes to her name. There is mild tremor of the head. NECK: Full, trach in place, no bleeding. LUNGS: Clear anteriorly. HEART: Irregular. No murmur. ABDOMEN: Morbidly obese with PEG tube in place. EXTREMITIES: There is massive anasarca, edema throughout. NEUROLOGIC: She does not move any extremities. LABORATORY DATA: All lab data was reviewed. ASSESSMENT: 1. Sepsis syndrome, consider urinary source. 2. Chronic hypoxic respiratory failure. 3. Chronic ventilator dependence. 4. Chronic atrial fibrillation with rapid ventricular response. 5. Possible gastrointestinal bleed. 6. Anticoagulation use. 7. Morbid obesity. 8. Chronic kidney disease, stage III. 9. Diabetes type 2. 10. Anemia of acute bleeding loss, unclear etiology. 11. Obesity hypoventilation syndrome. PLAN: She has been placed in ICU with full sepsis protocol and support. Multiple consultants have been contacted to address issues. She remains critically ill with a poor prognosis. There were no plans for ventilator weaning attempts. No anticoagulation at this time for concern of GI bleed. <ELECTRONICALLY SIGNED> By: Eric Rock MD 04/03/17 1228 1708 1752 Eric Rock MD /nt
--- NOTE | ~2017-04-02 | HC ---
[facility] [place] [address] CONSULTATION Name: BEHZAD SPICER Room #: 237-P ADM IN M.R.#: [id number] Admission: 04/02/17 Attend Phys: Eric Rock MD Discharge: Date of : 50 Report #: [id number] THIS REPORT FOR: //name// CC: Dave Rock REASON FOR CONSULTATION: Acute kidney injury. REASON FOR PRESENTATION: Sent from [facility] with rectal bleeding. HISTORY OF PRESENT ILLNESS: The patient is a 66-year-old with past medical history of chronic respiratory failure, status post tracheostomy, chronic vent dependency with a PEG tube. She was sent from the [facility] for rectal bleeding event. She is known to have atrial fibrillation with oropharyngeal dysphagia. She was treated at the facility after being here in [place] back in February for an E. coli bacteremia and multidrug resistant pseudomonas in the sputum. She medically stabilized and was sent to the [facility] for further weaning and rehabilitation. The patient developed rectal bleeding yesterday and was sent to the Emergency Room. In the Emergency Room, she was actually found to be hypotensive, in AFib with rapid ventricular response. Creatinine was elevated, mandating a Nephrology consultation. Looking back at her trend here, she was discharged with a creatinine of around 1.3 back in February. Creatinine as of this morning is down to 1.5. I am being asked to manage her acute kidney injury. She suffers from multiple comorbid conditions including diabetes mellitus and chronic edema. ALLERGIES: METFORMIN, SIMVASTATIN, SEPTRA, TOBRAMYCIN. PAST MEDICAL HISTORY: Numerous and include the followin. Atrial fibrillation. 2. Morbid obesity. 3. Sleep apnea. 4. Chronic vent. 5. Chronic PEG. 6. Right-sided heart failure with cor pulmonale. 7. Hysterectomy. 8. Cholecystectomy. 9. Hernia repair. SOCIAL HISTORY: She resides at the nursing facility. No drug or alcohol abuse. REVIEW OF SYSTEMS: Unobtainable given the patient's mental status. FAMILY HISTORY: Unobtainable given the patient's mental status. MEDICATIONS: On presentation, the patient was on the following medications: 1. Hydrocortisone cream. [facility] [address] [place] [address] CONSULTATION Name: BEHZAD SPICER Room #: 237-P [facility] IN M.R.#: [id number] Admission: 04/02/17 Attend Phys: Eric Rock MD Discharge: Date of : 50 Report #: [id number] 2. Levothyroxine. 3. Insulin. Currently, inpatient medications include the followin. Acetaminophen. 2. Amiodarone. 3. Diflucan. 4. Furosemide. 5. Pantoprazole. 6. Zosyn. PHYSICAL EXAMINATION: GENERAL: She is on the vent. VITAL SIGNS: Temperature up to 39.1, pulse rate is 117, blood pressure 101/67. HEAD AND NECK: Tracheostomy. CHEST: Decreased air entry bilaterally. CARDIOVASCULAR: No rub, ABDOMEN: Massive edema. LOWER EXTREMITIES: Massive edema. LABORATORY DATA: Laboratory values and images reviewed. Creatinine is actually down to 1.5. White blood cell count is 18.6, platelets 95. Hemoglobin was up to 7.1. Sodium was 123 this morning. ASSESSMENT, IMPRESSION, PLAN: 1. Acute kidney injury. 2. Chronic kidney disease. 3. Gastrointestinal bleeding. 4. Hyponatremia. 5. Hypoalbuminemia. 6. Thrombocytopenia. 7. Chronic respiratory failure. 8. Septic shock. 9. The patient is normalizing her creatinine towards her baseline. We will back off the IV fluid. Her acute kidney injury was due to hypotension with her atrial fibrillation, rapid ventricular response, rectal bleeding and hypoperfusion of the kidneys. 10. Cardiology is managing her atrial fibrillation, I would rather use an agent that would not cause hypotension. 11. We will back off the IV fluids. 12. Her hyponatremia is due to hypervolemia and we will reduce the rate of the IV fluid and start on appropriate diuretics. 13. We will continue to follow along. She is making progressive from the renal perspective [place] [address] CONSULTATION Name: BEHZAD SPICER Room #: [facility] ADM IN M.R.#: [id number] Admission: 04/02/17 Attend Phys: Eric Rock MD Discharge: Date of : 50 Report #: [id number] 14. Antibiotics. ID will continue monitoring her renal function in the next few days. <ELECTRONICALLY SIGNED> By: Chidi Joseph MD 04/05/17 1508 0917 0955 Chidi Joseph MD /nt
--- NOTE | ~2017-04-02 | EKG ---
[place] [address] [facility] [place] [address] ELECTROCARDIOGRAM REPORT Name: BEHZAD SPICER Room #: 237-P ADM IN M.R.#: [id number] Admission: 04/02/17 Attend Phys: Eric Rock MD Discharge: Date of : 50 Report #: [id number] THIS REPORT FOR: //name// [facility] ED Test Date: 2017-04-02 Test Time: 10:00:18 Pat Name: BEHZAD SPICER Department: Room: 237 Gender: F Residential Roofer: RAMY : 1950 Requested By: Rachel Farley Order Number: [id number] MD: Cody Goldberg Measurements Intervals [place] Rate: 169 P: 0 MN: 92 QRS: -1 QRSD: 103 T: 127 QT: 280 QTc: 470 Interpretive Statements Atrial fibrillation with a rapid ventricular response Nonspecific intraventricular conduction delay Poor R wave progression Nonspecific ST and T wave abnormality No previous ECG available for comparison Electronically Signed On 04-03-2017 8:20:21 CDT by Cody Goldberg [email or web address] <ELECTRONICALLY SIGNED> By: Cody Goldberg MD, [facility] 04/03/17 0820 1000 1000 Cody Goldberg MD, [facility] /EPI
[~2017-04-02 09:47] MED LIST: CALMOSEPTINE O3.5 GM TP; COZAAR 50 MG TA50 M2 PER TUBE; DILTIAZEM HCL90 MG PER TUBE; DUONEB 2.5-0.5 M3 ML INH; ELIQUIS5 MG PER TUBE; GLIMEPIRIDE4 MG PER TUBE; HUMALOG100 UNIT/1 SUBQ; LANTUS100 UNIT/M SUBQ; LASIX 40 MG TAB40 M2 PER TUBE; LEVOTHYROXIN0.075 MG PER TUBE; LOPRESSOR25 PER TUBE; LOPRESSOR50 PER TUBE; OMEPRAZOLE40 MG PER TUBE; ORAZINC220 MG PER TUBE; PROBIOTIC1 EAC1 PER TUBE; VALPROIC A500 MG/10 PER TUBE; VITAMIN B-1100 MG PER TUBE; XANAX 0.5 MG0.5 MG PER TUBE; ZOSYN 3.3753.375 GM IV
[2017-04-02 10:25] LABS: HEMATOCRIT 21.3 % (37.0-47.0); HEMOGLOBIN 7.1 gm/dL (12.0-15.0); MCH 34.4 pg (26.0-34.0); MCHC 33.4 g/dL (28.0-37.0); MCV 102.9 fL (80.0-100.0); PLATELET COUNT 96 thou/uL (150-400); RBC 2.07 mil/uL (4.20-5.00); RDW 18.9 % (10.5-14.5); WBC 16.5 thou/uL (4.0-11.0)
[2017-04-02] MEDS ORDERED: AMARYL4 MG PER TUBE (10:32)
[2017-04-02] MEDS ORDERED: COZAAR 50 MG TA50 M2 PO (10:33)
[2017-04-02] MEDS ORDERED: METOLAZONE 5 MG5 MG PER TUBE (10:34)
[2017-04-02] MEDS ORDERED: PROBIOTIC1 EAC1 PO (10:34)
[2017-04-02 10:35] LABS: URINE BILIRUBIN NEGATIVE (Negative); URINE BLOOD 3+ (Negative); URINE GLUCOSE-RANDOM* NEGATIVE (Negative); URINE KETONES NEGATIVE (Negative); URINE NITRITE NEGATIVE (Negative); URINE PROTEIN (DIPSTICK) 2+ (Negative); URINE SPECIFIC GRAVITY 1.015 (1.003-1.035)
[2017-04-02] MEDS ORDERED: VITAMINE B-1100 MG PO (10:35)
[2017-04-02 10:36] LABS: URINE COLOR YELLOW
[2017-04-02] MEDS ORDERED: ZINC50 M2 PO (10:38)
[2017-04-02] MEDS ORDERED: FUROSEMIDE 40 M40 M1 PO (10:39)
[2017-04-02] MEDS ORDERED: OMEPRAZOLE20 M1 PO (10:39)
[2017-04-02] MEDS ORDERED: ELIQUIS5 MG PO (10:39)
[2017-04-02] MEDS ORDERED: AMOXICILLIN250 MG PER TUBE (10:40)
[2017-04-02] MEDS ORDERED: VALPROIC A250 MG/51 PO (10:42)
[2017-04-02 10:43] LABS: CASTS None Seen /LPF (None Seen); SQUAMOUS 0-3 Few /LPF (0-3)
[2017-04-02 10:45] LABS: AMORPHOUS URATES Few /LPF (None Seen); URINE RBC >20 Many /HPF (0-2)
[2017-04-02 10:46] LABS: MANUAL DIFF YES
[2017-04-02 10:46] LABS: WBC CLUMPS Moderate (None Seen)
[2017-04-02 10:52] LABS: ABG SAMPLE TYPE ARTERIAL; BE(vivo) 7.9 mmol/L (-2 to +3); O2(CT) 11.4 mL/dL (15.0-23.0); O2Hb 97.6 % (92.0-98.0); PCO2 36.8 mmHg (35.0-45.0); PO2 116.3 mmHg (80.0-100.0); pH 7.543 (7.360-7.450); sO2 98.7 % (92.0-98.0); tCO2 32.1 mmol/L (24.0-30.0)
[2017-04-02 10:54] LABS: STICK SITE R.RADIAL
[2017-04-02 10:57] LABS: TIDAL VOLUME 500 ml
[2017-04-02] MEDS ORDERED: CALMOSEPTINE O3.5 GM (10:57)
[2017-04-02] MEDS ORDERED: ANTIFUNGAL (10:58)
[2017-04-02] MEDS ORDERED: VENELEX OINTMEN60 GM TOP (11:00)
[2017-04-02] MEDS ORDERED: LOCOID 0.1% CRE15 GM TOP (11:01)
[2017-04-02] MEDS ORDERED: LIQUITEARS15 ML OPHTHALMIC (11:02)
[2017-04-02] MEDS ORDERED: MAPAP160 MG/51 PO (11:02)
[2017-04-02 11:36] LABS: ABSOLUTE NEUTROPHILS 14.5 thou/uL (1.4-8.2); METAMYELOCYTES 2 %; MYELOCYTES 2 %; TOTAL CELL COUNT 100
[2017-04-02 11:37] LABS: ANISOCYTOSIS 2+; MACROCYTES 1+
[2017-04-02 12:10] LABS: ANION GAP 5 mmol/L (7-16); BUN 51 mg/dL (7-18); CALCIUM 8.8 mg/dL (8.5-10.1); CHLORIDE 86 mmol/L (98-107); CO2 31 mmol/L (21-32); GLUCOSE 192 mg/dL (74-106); POTASSIUM 4.4 mmol/L (3.5-5.1); SODIUM 122 mmol/L (136-145)
[2017-04-02 12:18] LABS: ALBUMIN 1.2 g/dL (3.4-5.0); ALKALINE PHOSPHATASE 103 U/L (46-116); DIRECT BILIRUBIN 0.3 mg/dL (<0.1-0.3); SGOT 32 U/L (15-37); SGPT 12 U/L (30-65); TOTAL BILIRUBIN 0.5 mg/dL (<0.1-1.0); TOTAL PROTEIN 6.5 g/dL (6.4-8.2); TROPONIN-I < 0.04 ng/mL (<0.04-0.07)
[2017-04-02 14:17] LABS: APTT 30.1 Seconds (24.5-32.8); INR 1.2; PROTIME 11.8 Seconds (9.3-11.4)
[2017-04-02 15:46] LABS: RBC 1.61 mil/uL (4.20-5.00)
[2017-04-02 15:48] LABS: MCHC 34.4 g/dL (28.0-37.0); MCV 101.7 fL (80.0-100.0); RDW 18.6 % (10.5-14.5); WBC 16.9 thou/uL (4.0-11.0)
[2017-04-02 15:59] LABS: HEMATOCRIT 16.4 % (37.0-47.0); HEMOGLOBIN 5.6 gm/dL (12.0-15.0)
[2017-04-02 16:04] LABS: CALCIUM 7.8 mg/dL (8.5-10.1); CREATININE 1.8 mg/dL (0.6-1.0); POTASSIUM 3.9 mmol/L (3.5-5.1)
[2017-04-02 20:23] LABS: HEMATOCRIT 17.6 % (37.0-47.0)
[2017-04-02 22:18] LABS: CALCIUM 7.9 mg/dL (8.5-10.1); CREATININE 1.7 mg/dL (0.6-1.0); POTASSIUM 3.6 mmol/L (3.5-5.1)
[2017-04-03] VITALS (109 sets, daily range): BP systolic 63–162; BP diastolic 29–92
[2017-04-03 04:55] LABS: HEMATOCRIT 21.1 % (37.0-47.0); HEMOGLOBIN 7.1 gm/dL (12.0-15.0); MCH 34.3 pg (26.0-34.0); MCHC 33.6 g/dL (28.0-37.0); RBC 2.06 mil/uL (4.20-5.00); RDW 18.3 % (10.5-14.5); WBC 18.6 thou/uL (4.0-11.0)
[2017-04-03 05:03] LABS: ABG SAMPLE TYPE ARTERIAL; BE(vivo) 3.7 mmol/L (-2 to +3); HCO3 28.4 mmol/L (22.0-26.0); LACTATE 3.12 mmol/L (0.5-2.0); O2(CT) 13.2 mL/dL (15.0-23.0); O2Hb 95.2 % (92.0-98.0); PCO2 43.4 mmHg (35.0-45.0); STICK SITE R.RADIAL; pH 7.433 (7.360-7.450); sO2 96.4 % (92.0-98.0); tCO2 29.7 mmol/L (24.0-30.0)
[2017-04-03 05:04] LABS: TIDAL VOLUME 500 ml
[2017-04-03 05:14] LABS: ALBUMIN 1.2 g/dL (3.4-5.0); CALCIUM 8.6 mg/dL (8.5-10.1); CREATININE 1.5 mg/dL (0.6-1.0); POTASSIUM 4.1 mmol/L (3.5-5.1); TOTAL BILIRUBIN 0.7 mg/dL (<0.1-1.0); TOTAL PROTEIN 7.3 g/dL (6.4-8.2)
[2017-04-03 06:13] LABS: APTT 30.8 Seconds (24.5-32.8); INR 1.1; PROTIME 11.7 Seconds (9.3-11.4)
[2017-04-04] VITALS (99 sets, daily range): BP systolic 77–151; BP diastolic 30–131
[2017-04-04 05:06] LABS: MCH 34.1 pg (26.0-34.0); MCHC 33.4 g/dL (28.0-37.0); MCV 102.2 fL (80.0-100.0); RBC 1.86 mil/uL (4.20-5.00); RDW 18.9 % (10.5-14.5); WBC 19.7 thou/uL (4.0-11.0)
[2017-04-04 05:07] LABS: ABG SAMPLE TYPE ARTERIAL; BE(vivo) 3.9 mmol/L (-2 to +3); LACTATE 2.25 mmol/L (0.5-2.0); O2Hb 96.7 % (92.0-98.0); PCO2 40.5 mmHg (35.0-45.0); PO2 110.8 mmHg (80.0-100.0); pH 7.458 (7.360-7.450); sO2 98.3 % (92.0-98.0); tCO2 29.3 mmol/L (24.0-30.0)
[2017-04-04 05:08] LABS: Hood 500 %; STICK SITE R.RADIAL; Tent 8 %
[2017-04-04 05:21] LABS: CALCIUM 8.5 mg/dL (8.5-10.1); CREATININE 1.3 mg/dL (0.6-1.0)
[2017-04-04 05:30] LABS: HEMOGLOBIN 6.3 gm/dL (12.0-15.0)
[2017-04-04 18:27] LABS: HEMATOCRIT 20.5 % (37.0-47.0); MCH 33.2 pg (26.0-34.0); MCV 97.5 fL (80.0-100.0); RBC 2.1 mil/uL (4.20-5.00); RDW 19.7 % (10.5-14.5)
[2017-04-05] VITALS (104 sets, daily range): BP systolic 67–142; BP diastolic 37–118
[2017-04-05 05:18] LABS: ABG SAMPLE TYPE ARTERIAL; BE(vivo) 4.5 mmol/L (-2 to +3); HCO3 29.5 mmol/L (22.0-26.0); LACTATE 1.78 mmol/L (0.5-2.0); O2(CT) 13.8 mL/dL (15.0-23.0); O2Hb 96.7 % (92.0-98.0); PO2 99.7 mmHg (80.0-100.0); pH 7.425 (7.360-7.450); sO2 97.6 % (92.0-98.0); tCO2 30.9 mmol/L (24.0-30.0)
[2017-04-05 05:19] LABS: STICK SITE R.RADIAL; TIDAL VOLUME 500 ml
[2017-04-05 06:20] LABS: HEMOGLOBIN 7.3 gm/dL (12.0-15.0); WBC 26.9 thou/uL (4.0-11.0)
[2017-04-05 06:21] LABS: HEMATOCRIT 21.7 % (37.0-47.0); MCH 32.6 pg (26.0-34.0); MCHC 33.7 g/dL (28.0-37.0); MCV 96.7 fL (80.0-100.0); RBC 2.24 mil/uL (4.20-5.00)
[2017-04-05 06:35] LABS: CALCIUM 8.5 mg/dL (8.5-10.1); CREATININE 1.1 mg/dL (0.6-1.0); PHOSPHORUS 2.3 mg/dL (2.5-4.9); POTASSIUM 3.5 mmol/L (3.5-5.1)
[2017-04-05 17:22] LABS: HEMATOCRIT 20.6 % (37.0-47.0); HEMOGLOBIN 7.3 gm/dL (12.0-15.0); MCH 34.4 pg (26.0-34.0); MCHC 35.6 g/dL (28.0-37.0); MCV 96.8 fL (80.0-100.0); RBC 2.13 mil/uL (4.20-5.00); RDW 19.7 % (10.5-14.5); WBC 22.8 thou/uL (4.0-11.0)
[2017-04-05 22:55] LABS: MAGNESIUM 1.5 mg/dL (1.8-2.4); POTASSIUM 3.6 mmol/L (3.5-5.1)
[2017-04-06] VITALS (56 sets, daily range): BP systolic 74–132; BP diastolic 44–114
[2017-04-06 05:02] LABS: HEMATOCRIT 21.5 % (37.0-47.0); MCH 33.7 pg (26.0-34.0); RDW 20.1 % (10.5-14.5)
[2017-04-06 05:03] LABS: HEMOGLOBIN 7.5 gm/dL (12.0-15.0); MCHC 34.7 g/dL (28.0-37.0); MCV 97.3 fL (80.0-100.0); RBC 2.21 mil/uL (4.20-5.00); WBC 28.6 thou/uL (4.0-11.0)
[2017-04-06 05:29] LABS: ALBUMIN 1.1 g/dL (3.4-5.0); CALCIUM 8.4 mg/dL (8.5-10.1); CREATININE 1.1 mg/dL (0.6-1.0); PHOSPHORUS 2.4 mg/dL (2.5-4.9); POTASSIUM 3.4 mmol/L (3.5-5.1)
[2017-04-06 17:55] LABS: HEMATOCRIT 20.8 % (37.0-47.0); HEMOGLOBIN 7.7 gm/dL (12.0-15.0); MCH 35.5 pg (26.0-34.0); MCHC 36.8 g/dL (28.0-37.0); MCV 96.3 fL (80.0-100.0); RBC 2.16 mil/uL (4.20-5.00); RDW 19.7 % (10.5-14.5); WBC 21.3 thou/uL (4.0-11.0)
[2017-04-07] VITALS (29 sets, daily range): BP systolic 91–135; BP diastolic 45–111
[2017-04-07 05:32] LABS: MANUAL DIFF YES
[2017-04-07 05:38] LABS: ALBUMIN 1.1 g/dL (3.4-5.0); ALKALINE PHOSPHATASE 95 U/L (46-116); ANION GAP 6 mmol/L (7-16); BUN 30 mg/dL (7-18); CALCIUM 8.2 mg/dL (8.5-10.1); CHLORIDE 89 mmol/L (98-107); CO2 31 mmol/L (21-32); CREATININE 0.8 mg/dL (0.6-1.0); POTASSIUM 3.7 mmol/L (3.5-5.1); SODIUM 126 mmol/L (136-145); TOTAL BILIRUBIN 0.7 mg/dL (<0.1-1.0)
[2017-04-07 05:54] LABS: SGOT 21 U/L (15-37)
[2017-04-07 05:56] LABS: TOTAL PROTEIN 6.8 g/dL (6.4-8.2)
[2017-04-07 05:57] LABS: SGPT < 6 U/L (30-65)
[2017-04-07 06:28] LABS: HEMATOCRIT 21.8 % (37.0-47.0); RBC 2.21 mil/uL (4.20-5.00); WBC 18.8 thou/uL (4.0-11.0)
[2017-04-07 06:29] LABS: MCH 32.2 pg (26.0-34.0); MCHC 32.4 g/dL (28.0-37.0); MCV 99.4 fL (80.0-100.0); PLATELET COUNT 35 thou/uL (150-400); RDW 19.9 % (10.5-14.5)
[2017-04-07 06:31] LABS: HEMOGLOBIN 7.1 gm/dL (12.0-15.0)
[2017-04-07 06:36] LABS: GLUCOSE 332 mg/dL (74-106)
[2017-04-07 06:39] LABS: ABSOLUTE NEUTROPHILS 14.9 thou/uL (1.4-8.2); METAMYELOCYTES 2 %; MYELOCYTES 5 %; PROMYELOCYTES 1 %; TOTAL CELL COUNT 100
[2017-04-07 06:40] LABS: ANISOCYTOSIS 2+; LARGE PLATELETS OCCASIONAL; PLATELET ESTIMATE DECREASED
[2017-04-07 06:41] LABS: POLYCHROMASIA 1+; TOXIC GRANULATION 1+
[2017-04-07 10:14] LABS: ABG SAMPLE TYPE ARTERIAL; BE(vivo) 9.7 mmol/L (-2 to +3); HCO3 34.5 mmol/L (22.0-26.0); LACTATE 1.74 mmol/L (0.5-2.0); O2(CT) 11.5 mL/dL (15.0-23.0); O2Hb 96.2 % (92.0-98.0); PO2 90.9 mmHg (80.0-100.0); STICK SITE R.RADIAL; TIDAL VOLUME 500 ml; pH 7.466 (7.360-7.450); sO2 97.3 % (92.0-98.0)
[2017-04-08 04:28] LABS: HEMATOCRIT 23.3 % (37.0-47.0); HEMOGLOBIN 8.5 gm/dL (12.0-15.0); RBC 2.42 mil/uL (4.20-5.00)
[2017-04-08 04:30] LABS: MCH 35.3 pg (26.0-34.0); MCHC 36.7 g/dL (28.0-37.0); MCV 96.3 fL (80.0-100.0); RDW 19.1 % (10.5-14.5)
[2017-04-08 04:36] LABS: ALBUMIN 1.2 g/dL (3.4-5.0); CALCIUM 8.2 mg/dL (8.5-10.1); CREATININE 0.7 mg/dL (0.6-1.0); PHOSPHORUS 3.1 mg/dL (2.5-4.9); POTASSIUM 3.4 mmol/L (3.5-5.1)
[2017-04-09] VITALS (56 sets, daily range): BP systolic 70–147; BP diastolic 34–122
[2017-04-09 04:20] LABS: HEMATOCRIT 22.1 % (37.0-47.0); HEMOGLOBIN 7.9 gm/dL (12.0-15.0); MCH 34.8 pg (26.0-34.0); MCHC 35.9 g/dL (28.0-37.0); RBC 2.28 mil/uL (4.20-5.00); WBC 18.7 thou/uL (4.0-11.0)
[2017-04-09 04:31] LABS: ALBUMIN 1.1 g/dL (3.4-5.0); CALCIUM 8.3 mg/dL (8.5-10.1); CREATININE 0.6 mg/dL (0.6-1.0); PHOSPHORUS 3.7 mg/dL (2.5-4.9); POTASSIUM 3.8 mmol/L (3.5-5.1)
[2017-04-09 05:27] LABS: ABG SAMPLE TYPE ARTERIAL; BE(vivo) 9.1 mmol/L (-2 to +3); HCO3 33.6 mmol/L (22.0-26.0); LACTATE 1.61 mmol/L (0.5-2.0); O2(CT) 11.8 mL/dL (15.0-23.0); O2Hb 97.1 % (92.0-98.0); PCO2 46.6 mmHg (35.0-45.0); PO2 101.6 mmHg (80.0-100.0); pH 7.476 (7.360-7.450); sO2 97.9 % (92.0-98.0)
[2017-04-09 05:28] LABS: STICK SITE L.RADIAL
[2017-04-09 05:29] LABS: ABG COMMENT A/C 20; TIDAL VOLUME 500 ml
[2017-04-10] VITALS (21 sets, daily range): BP systolic 92–125; BP diastolic 47–101
[2017-04-10 04:12] LABS: ALBUMIN 1.3 g/dL (3.4-5.0); CALCIUM 8.2 mg/dL (8.5-10.1); CREATININE 0.7 mg/dL (0.6-1.0); PHOSPHORUS 3.4 mg/dL (2.5-4.9); POTASSIUM 3.6 mmol/L (3.5-5.1)
[2017-04-10] MEDS ORDERED: DUONEB 2.5-0.5 M3 ML INH (12:50)
[2017-04-10] MEDS ORDERED: MERREM1 GM IVPB (12:50)
[2017-04-10] MEDS ORDERED: PACERONE 200 M200 M1 PO (12:50)
[2017-04-10] MEDS ORDERED: DIGOXIN250 MCG PER TUBE (12:51)
[2017-04-10] MEDS ORDERED: ALDACTONE25 MG PER TUBE (12:51)
[2017-04-10] MEDS ORDERED: ACETAMINOPHEN325 M1 PO (12:51)
[2017-04-10] MEDS ORDERED: METOCLOPRAM5 MG/1 ML IV PUSH (12:52)
[2017-04-10] MEDS ORDERED: DEPAKOTE 250MG250 M1 PO (12:52)
[2017-04-10] MEDS ORDERED: HUMALOG100 UNIT/1 SUBQ (12:53)
== END 2017-04-10 19:33 | DRG 870 ==
LOC: ER 09:47 → EROBS 12:45 → ICU 12:45
PROVIDERS: Family Medicine; Hospitalist; Internal Medicine Cardiovascular Disease; Internal Medicine Geriatric Medicine; Internal Medicine Nephrology; Internal Medicine Pulmonary Disease; Nurse Practitioner
PROC: 5A1955Z Respiratory Ventilation, Greater than 96 Consecutive Hours (ICD-10-PCS; principal; 2017-04-02)
PROC: 02HV33Z Insertion of Infusion Device into Superior Vena Cava, Percutaneous Approach (ICD-10-PCS; 2017-04-02)
PROC: B548ZZA Ultrasonography of Superior Vena Cava, Guidance (ICD-10-PCS; 2017-04-02)
DX: A41.51 Sepsis due to Escherichia coli [E. coli] (principal); R65.21 Severe sepsis with septic shock; G92 Toxic encephalopathy; J96.21 Acute and chronic respiratory failure with hypoxia; I50.33 Acute on chronic diastolic (congestive) heart failure; I63.9 Cerebral infarction, unspecified; K92.2 Gastrointestinal hemorrhage, unspecified; N39.0 Urinary tract infection, site not specified; N17.9 Acute kidney failure, unspecified; E87.1 Hypo-osmolality and hyponatremia; G40.109 Localization-related (focal) (partial) symptomatic epilepsy and epileptic syndromes with simple partial seizures, not intractable, without status epilepticus; E46 Unspecified protein-calorie malnutrition; K62.5 Hemorrhage of anus and rectum; Z68.44 Body mass index [BMI] 60.0-69.9, adult; B96.20 Unspecified Escherichia coli [E. coli] as the cause of diseases classified elsewhere; Z16.24 Resistance to multiple antibiotics; I48.2 Chronic atrial fibrillation; D63.8 Anemia in other chronic diseases classified elsewhere; N18.3 Chronic kidney disease, stage 3 (moderate); E11.22 Type 2 diabetes mellitus with diabetic chronic kidney disease; E66.01 Morbid (severe) obesity due to excess calories; G47.33 Obstructive sleep apnea (adult) (pediatric); D69.6 Thrombocytopenia, unspecified; R56.9 Unspecified convulsions; I27.81 Cor pulmonale (chronic); E87.6 Hypokalemia; E11.65 Type 2 diabetes mellitus with hyperglycemia; Z93.1 Gastrostomy status; Z79.2 Long term (current) use of antibiotics; Z79.899 Other long term (current) drug therapy; Z90.710 Acquired absence of both cervix and uterus; Z88.2 Allergy status to sulfonamides; Z88.1 Allergy status to other antibiotic agents; Z88.8 Allergy status to other drugs, medicaments and biological substances; Z93.0 Tracheostomy status
CPT/HCPCS: 10078; 27000